=== PATIENT | female | born 1960 | race Caucasian/White ===

== ENCOUNTER 2021-06-19 18:15 | Outpatient (REF) | payer BC, SELFPAY | END 2021-06-19 18:16 | disposition home or self-care (01) | LOC: HO.LNP 18:15 | PROVIDERS: Visit Provider Physician Assistant | DX: N39.0 Urinary tract infection, site not specified (principal) | CPT/HCPCS: 87086; 87088; 87186 ==

== ENCOUNTER 2021-11-15 09:34 | Outpatient (REF) | payer BC, SELFPAY ==
--- NOTE | ~2021-11-15 | XR_ITS ---
EXAMINATION: XR CHEST CLINICAL INFORMATION: Upper respiratory tract infection COMPARISON: None TECHNIQUE: 2 views of the chest were obtained. FINDINGS: No significant abnormality is noted involving the heart, lungs, mediastinum, bony thorax or soft tissues. XR/XR chest 2V IMPRESSION: Unremarkable examination.
[2021-11-15 12:36] LABS: Influenza A PCR NEGATIVE (Negative); Influenza B PCR NEGATIVE (Negative); Resp Syncy Virus RNA Qual PCR NEGATIVE (Negative); SARS COV2 PCR INHOUSE NEGATIVE (Negative)
== END 2021-11-15 09:35 | disposition home or self-care (01) ==
LOC: HO.HMGCX 09:34
PROVIDERS: Visit Provider Physician Assistant
DX: J06.9 Acute upper respiratory infection, unspecified (principal); J32.9 Chronic sinusitis, unspecified; Z20.822 Contact with and (suspected) exposure to COVID-19
CPT/HCPCS: 0241U; 71046

== ENCOUNTER 2021-12-23 09:35 | Outpatient (REF) | payer BC, SELFPAY ==
--- NOTE | ~2021-12-23 | XR_ITS ---
EXAMINATION: XR CHEST CLINICAL INFORMATION: Acute respiratory infection. COMPARISON: Chest radiograph 11/15/2021. TECHNIQUE: 2 views of the chest were obtained. FINDINGS: Normal appearance of the cardiomediastinal silhouette. No focal airspace opacity, pleural effusion or pneumothorax. No acute osseous abnormalities. Right upper quadrant surgical clips. XR/XR chest 2V IMPRESSION: No acute cardiopulmonary findings.
[2021-12-23 10:09] LABS: Binax Internal Control QC Valid; Binax Now Covid-19 Ag Negative (Negative)
== END 2021-12-23 09:36 | disposition home or self-care (01) ==
LOC: HO.HMGCX 09:35
PROVIDERS: Visit Provider Physician Assistant
DX: Z20.822 Contact with and (suspected) exposure to COVID-19 (principal); J06.9 Acute upper respiratory infection, unspecified
CPT/HCPCS: 71046; 87811; C9803

== ENCOUNTER 2024-05-26 18:25 | Emergency (ER) | payer BC, SELFPAY ==
--- NOTE | ~2024-05-26 | XR_ITS ---
EXAMINATION: XR HAND, LEFT CLINICAL INFORMATION: puncture wound COMPARISON: 05/06/2017 TECHNIQUE: PA, lateral, and oblique views of the left hand. FINDINGS: Ulnar negative variance with advanced degenerative changes of the distal radioulnar joint compatible with chronic ulnar impingement. Mild to moderate osteoarthritis of the interphalangeal joints, most prominent at the 2nd PIP joint with ulnar deviation, as well as the 3rd and 4th PIP joints. No acute fracture or malalignment. XR/XR hand LT min 3V IMPRESSION: 1. No acute osseous abnormality. No radiopaque foreign body. 2. Ulnar negative variance with chronic ulnar impingement. 3. 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 Electronically signed by: Jass Rutherford MD 05/26/2024 08:24 PM [facility]
[2024-05-26 18:34] VITALS: BP 174/80; PULSE 91; RESP 18; TEMP 36.4; O2SAT 99; BMI 34.5
--- NOTE | 2024-05-26 18:36 | ED_ITS ---
HPI - General Adult General Chief complaint: Wound/Laceration Stated complaint: left hand wound Time Seen by Provider: 05/27/24 00:51 Source: patient Limitations: no limitations History of Present Illness ED Provider: Carrol Gill PA-C HPI narrative: 63-year-old female with a history of rheumatoid arthritis presents with puncture wound to left hand. 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 Patient is not sure if tetanus is up-to-date. Related Data Home Medications ?Medication ?Instructions ?Recorded ?Confirmed methotrexate sodium 2.5 mg tablet 0 mg PO 06/19/21 prednisone 20 mg tablet 60 mg PO DAILY 06/19/21 sulfasalazine 500 mg tablet 0 mg PO 06/19/21 valacyclovir 1 gram tablet mg PO 06/19/21 leflunomide 10 mg tablet 10 mg PO DAILY 11/15/21 Previous Rx's ?Medication ?Instructions ?Recorded nitrofurantoin 100 mg PO Q12H 5 days #10 caps 06/19/21 monohydrate/macrocrystals 100 mg capsule (Macrobid) albuterol sulfate 90 mcg/actuation 2 puff inhalation Q6H PRN 11/15/21 aerosol inhaler shortness of breath or wheezing #6.7 grams amoxicillin 875 mg-potassium 1 tab PO BID 10 days #20 tabs 11/15/21 clavulanate 125 mg tablet benzonatate 100 mg capsule 100 mg PO BID PRN cough #14 caps 11/15/21 cephalexin 500 mg capsule 500 mg PO Q6H #28 caps 05/27/24 Allergies Allergy/AdvReac Type Severity Reaction Status Date / Time latex [LATEX] Allergy Unknown HIVES Verified 05/26/24 18:36 Review of Systems Review of Systems: Yes all other systems are reviewed and are negative Constitutional: Constitutional: Denies fatigue and Denies fever(s) Musculoskeletal: Musculoskeletal: Denies arthralgias, Denies joint swelling, Denies numbness and Denies tingling Neurologic: Denies numbness and Denies tingling Endocrine: Endocrine: Denies fatigue [facility] Past Medical History Attestation statement: The following information was validated with the patient. Social History Social History Smoked in Last 30 Days: No Use of substances other than those prescribed or required for medical reasons: No Advance Directives: No Patient : No Physical Exam ED Vital Signs: Vital Signs - 24 hr 05/26/24 18:34 05/27/24 00:00 Temperature 97.6 F 97.9 F Pulse Rate 91 84 Respiratory Rate 18 20 Blood Pressure 174/80 H 150/80 H Pulse Oximetry 99 98 Oxygen Delivery Method Room Air Room Air BMI result Body Mass Index 34.5 Const Other: Alert well-appearing Orientation/consciousness: patient oriented x3 Resp Effort & Inspection: normal respiratory effort Cardio Other: Normal peripheral perfusion Skin Other: Warm dry no rash, superficial puncture wound that is not bleeding measures 1 cm in length is linear to some degree, more of a deep excoriation than a puncture. Neuro General: patient oriented x3, no focal motor deficits and CN's II-XI intact bilaterally Psych Other: Calm cooperative Course Course Course Narrative: RME, this is a rapid medical exam performed by Jairon Brock please refer to primary provider for complete H&P- 63-year-old female presents for evaluation of a left hand puncture wound. 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 Bleeding is controlled. Plan for x-ray Medical Decision Making Medical Decision Making MDM Narrative: 63-year-old female with a history of rheumatoid arthritis presents with puncture wound to left hand. Patient states she accidentally punctured the palm of her hand with a lateral [employer] network engineer. Patient is not sure if tetanus is up-to-date. Problem: Immunocompromise History: Per patient I have considered the following differential diagnoses: Fracture, dislocation, puncture wound, laceration, excoriation Plan: The patient has a clarified excoriation, given there was some degree of puncture and she is immunocompromised, we will cover with prophylactic antibiotics. Updating her tetanus. Imaging Was order, no communication with the bone. I have independently reviewed the following tests: X-ray left hand: XR/XR hand LT min 3V IMPRESSION: 1. No acute osseous abnormality. No radiopaque foreign body. 2. Ulnar negative variance with chronic ulnar impingement. 3. 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 Electronically signed by: Jass Rutherford MD 05/26/2024 08:24 PM EST Discharge Plan Discharge Clinical Impression: Puncture wound of hand, left Patient Disposition: Home, Self-Care Instructions: Puncture Wound (ED) Additional Instructions: You sustained a puncture wound of the left hand, the x-ray was normal, there was no communication with the bone. See home care instructions. Keep the site clean and dry, watch for signs of infection which would include redness, swelling, pus draining from the site. We are covering him with prophylactic antibiotics to help prevent infection. Take the cephalexin as directed. Follow up with your primary care provider for wound check next week. Prescriptions: New cephalexin 500 mg capsule 500 mg PO Q6H Qty: 28 0RF No Action leflunomide 10 mg tablet 10 mg PO DAILY amoxicillin-pot clavulanate 875-125 mg tablet 1 tab PO BID 10 Days Qty: 20 0RF benzonatate 100 mg capsule 100 mg PO BID PRN (Reason: cough) Qty: 14 0RF albuterol sulfate 90 mcg/actuation HFA aerosol inhaler 2 puff inhalation Q6H PRN (Reason: shortness of breath or wheezing) Qty: 6.7 0RF prednisone 20 mg tablet 60 mg PO DAILY methotrexate sodium 2.5 mg tablet 0 mg PO sulfasalazine 500 mg tablet 0 mg PO valacyclovir 1 gram tablet PO nitrofurantoin monohyd/m-cryst [Macrobid] 100 mg capsule 100 mg PO Q12H 5 Days Qty: 10 0RF Rx Instructions: must administer with a meal/food Print Language: [place]
[2024-05-27] VITALS: BP 150/80; PULSE 84; RESP 20; TEMP 36.6; O2SAT 98
[2024-05-27] MEDS: Diphth,Pertus(ACell),Tet Adult 0.5 ML SYRINGE IM (01:46)
[2024-05-27] MEDS: cephALEXin 500 MG CAPSULE PO (01:46)
[2024-05-27 01:56] VITALS: BP 170/75; PULSE 82; RESP 14; TEMP 36.4; O2SAT 99
[2024-05-27 01:57] VITALS: BP 170/75; PULSE 82; RESP 14; TEMP 36.4; O2SAT 99
== END 2024-05-27 01:58 | disposition home or self-care (01) ==
PROVIDERS: Emergency Provider Emergency Medicine; PCP Internal Medicine
DX: S61.432A Puncture wound without foreign body of left hand, initial encounter (principal); W26.8XXA Contact with other sharp object(s), not elsewhere classified, initial encounter; Y93.89 Activity, other specified; Y92.9 Unspecified place or not applicable; Y99.9 Unspecified external cause status; Z23 Encounter for immunization
CPT/HCPCS: 73130; 90471; 90715; 99284